=== PATIENT | female | born 1950 | race Caucasian/White ===

== ENCOUNTER → 2017-04-27 | Day surgery (SDC) | payer OTHER, MEDICARE ==
[2017-03-29 15:42] VITALS: Ht 162.6 cm; Wt 109.1 kg
[~2017-04-27] VITALS: Ht 162.6 cm; Wt 109.1 kg
[~2017-04-27] MED LIST: 500ML BSS 0.3ML EPI 1:1000PF IRRIG ONE; ACETAMINOPHEN 325 MG TAB PO PRN; AMIO0.1T PO; AMVISC PLUS 0.8ML SYRINGE INT OCU ONE; ASPCH81X PO; ATOR-24 PO; ATROPINE SULFATE 0.1 MG/ML 5ML SYR IV PRN; BETAXOLOL HCL 0.25% OP SUSP PER DROP CHARGE OPR SCH; BRIMONIDINE TART 0.2% OP SOLN PER DROP CHARGE ONE; BSS FLUSH ONE; CARI350T28 PO; DILT120C68 PO; ENDOCOAT 0.85ML SYRINGE INT OCU ONE; EpHEDrine SULFATE INJ 50 MG/ML AMP IV PRN; EpINEphrine INJ 1MG/ML AMP 1 MG/ML AMP ONE; FURO-85 PO; GABA1CAP5 PO; HYZ/10015 PO; LACTATED RINGER'S 1000ML 500 ML IV SCH; LEVO125T4 PO; LIDOCAINE 4% OP SOLN DROP CHARGE ONE; LIDOCAINE 4% OP SOLN DROP CHARGE OPR SCH; LIDOCAINE HCL 1% MPF 2 ML VIAL ONE; MIDAZOLAM HCL 1 MG/ML 2ML VIAL ONE; MIX: 4ML BSS 1ML EPI 1:1000 PF INSTIL ONE; MOXIFLOXACIN OPH SOLN PER DROP CHARGE ONE; MULT60CA PO; OCUCOAT 1 ML SOLN IO ONE; ONDANSETRON INJ 2 MG/ML 2 ML VIAL IV PRN; POVIDONE-IODINE OP SOLN 30 ML BTL ONE; PROPARACAINE 0.5% OP SOLN PER DROP CHARGE OPR SCH; RIVA1TAB4 PO; SERT-234 PO; TOBRAMYCIN/DEXAMETHASONE OPH OINT PER APPLN CHARGE ONE; VNTHFA/IN INH; ZNTT/150 PO; ZOLP10TA PO
--- NOTE | 2017-04-27 06:35 | History & Physical Bridge - [place] ---
H&P Re-Evaluation Bridge Note: I have examined the patient, reviewed the History & Physical and in the interval since the performance of the History & Physical I have noted the following changes of clinical significance: No changes noted
[2017-04-27] MEDS: PHENYLEPHRINE HCL 2.5% OP SOLN PER DROP CHARGE OPR SCH ×2 (06:45→06:50)
[2017-04-27] MEDS: TROPICAMIDE 1% OP SOLN PER DROP CHARGE OPR SCH ×2 (06:46→06:51)
[2017-04-27] MEDS: CYCLOPENTOLATE HCL 1% OP SOLN PER DROP CHARGE OPR SCH ×2 (06:47→06:52)
[2017-04-27] MEDS: MOXIFLOXACIN OPH SOLN PER DROP CHARGE OPR SCH ×2 (06:48→06:58)
--- NOTE | 2017-04-27 07:39 | Discharge Instructions-SurgCtr ---
Discharge Instructions Date of Service Apr 27, 2017. Visit Reason for Visit: Right Cataract Discharge Discharge Diagnosis / Problem: lens implant right eye Discharge Goals Goal(s): Improve function Activity Recommendations Activity Limitations: resume your previous activity Lifting Limitations: no more than 10 pounds Exercise/Sports Limitations: gradually increase as tolerated May Resume Sexual Activity: when tolerated Shower/Bathe: tomorrow Driving or Machine Use: resume 1 day after discharge Anesthesia . Post Anesthesia Instructions: If you have had General Anesthesia or IV Sedation: * Do not drive today. * Resume driving when surgeon permits. * Do not make important decisions or sign legal documents today. * Call surgeon for: 1. Temperature elevations greater than 101 degrees F. 2. Uncontrollable pain. 3. Excessive bleeding. 4. Persistent nausea and vomiting. 5. Medication intolerance (nausea, vomiting or rash). * For nausea and vomiting use only clear liquids such as: tea, soda, bouillon until nausea subsides, then gradually increase diet as tolerated. * If you have any concerns or questions, call your surgeon's office. If physician is unavailable and it is an emergency, call 911 or go to the nearest emergency room. . Instructions / Follow-Up Instructions / Follow-Up ACTIVITY RECOMMENDATIONS: * Light activities. * Mild irritation and blurred vision are common for the first few days. * You may walk outside, read, watch television. * Redness around the white part of the eye is common. MEDICATIONS: Resume previous medications unless instructed otherwise by your surgeon. Start all eye drops at 1 pm today: * Eye drops (today and tomorrow): Prednisone - one drop in operative eye every 3 hours while awake Ofloxacin - one drop in operative eye every 3 hours while awake Ilevro - one drop in operative eye once daily SPECIAL CARE INSTRUCTIONS: * Tape plastic shield over eye to sleep at night. Call your doctor at with any concerns or problems. FOLLOW UP VISIT: Follow-up with Dr Agosto at [place] office as scheduled. Diet Recommendations Home Diet: no limitations Procedures Procedures Performed: cataract extraction with lens implant Pending Studies Studies pending at discharge: no Medical Emergencies . Who to Call and When: Medical Emergencies: If at any time you feel your situation is an emergency, please call 911 immediately. . Non-Emergent Contact Non-Emergency issues call your: Inhalation Therapy Teacher Call Non-Emergent contact if: your pain is not controlled [phone] . . "Provider Documentation" section prepared by Javier Agosto. .
--- NOTE | 2017-04-27 07:40 | [facility] Operative Report ---
Operative Report Date of Service Apr 27, 2017. Operative Report 1. PREOPERATIVE DIAGNOSIS: Senile nuclear cataract, right eye. 2. POSTOPERATIVE DIAGNOSIS: Senile nuclear cataract, right eye. 3. PROCEDURE: Phacoemulsification of right cataract with posterior chamber lens implant, type [employer], model MX60, power +22 diopters. ANESTHESIA: Local standby. SURGEON: Dr. Agosto. COMPLICATIONS: None. OPERATING TIME: 10 minutes. 4. OPERATION AND FINDINGS: DESCRIPTION OF PROCEDURE: The right pupil was dilated. The anesthetic was administered using a topical technique. The right eye was prepped and draped. A speculum was placed. A clear corneal incision was formed. The chamber was filled with Amvisc Plus and Endocoat. Epinephrine solution was used. A paracentesis was placed. A capsulorrhexis was performed. The nucleus was hydrodissected. The lens was removed with phacoemulsification. Time was 2.23 seconds. The aspiration unit was used to remove the cortex. The capsule was filled with Amvisc Plus. The lens implant was folded and placed into the capsule. The incision was hydrated. The Amvisc was aspirated. The wound was secure. The chamber was deep. The pupil was round. Brimonidine, TobraDex ointment and Vigamox solution were placed. The speculum was removed. The patient was returned to the Recovery Room in stable condition. I attest to the content of the Intraoperative Record and any orders documented therein. Any exceptions are noted below. The scribe's documentation has been prepared in my presence, under my direction and personally reviewed by me in its entirety. I confirm that the note above accurately reflects all work, treatment, procedures, and medical decision making performed by me. I personally scribed for Javier Agosto M.D. ([email or web address]) on 04/27/17 at 07:40. Electronically submitted by Precious Francisco ([email or web address]).
[2017-04-27 07:45] VITALS: TEMP 36.5
--- NOTE | 2017-04-27 08:04 | Anesthesiology Progress Note ---
Anesthesia Post Op Note Date & Time Apr 27, 2017 at 08:04 Vital Signs Pain Intensity: 0 Vital Signs Past 12 Hours Date Time Temp Pulse Resp B/P (MAP) Pulse Ox O2 Delivery O2 Flow Rate FiO2 04/27/17 07:45 36.5 56 12 139/80 (99) 97 Room Air 04/27/17 06:32 36.8 59 18 133/68 (89) 96 Room Air Notes Mental Status: alert / awake / arousable, participated in evaluation Nausea / Vomiting: adequately controlled Pain: adequately controlled Airway Patency, RR, SpO2: stable & adequate BP & HR: stable & adequate Hydration State: stable & adequate Anesthetic Complications: no major complications apparent
[2017-04-27 08:10] VITALS: BP 138/81; PULSE 56; O2SAT 94
== END | disposition home or self-care (01) ==
LOC: X.SURG 06:14
PROVIDERS: ATTEND Specialist
DX: H25.11 Age-related nuclear cataract, right eye (principal); I10 Essential (primary) hypertension; I48.91 Unspecified atrial fibrillation; J45.909 Unspecified asthma, uncomplicated; E66.9 Obesity, unspecified; Z79.01 Long term (current) use of anticoagulants; Z88.0 Allergy status to penicillin; Z88.2 Allergy status to sulfonamides; Z90.89 Acquired absence of other organs; Z98.890 Other specified postprocedural states; Z68.41 Body mass index [BMI] 40.0-44.9, adult

== ENCOUNTER 2022-04-28 10:01 | Inpatient (IN) ==
--- NOTE | 2022-04-01 15:32 | PAT Medication Instructions ---
Medication Instructions Date of Service April 01, 2022 Home Medications Medication Instructions Recorded acetaminophen 500 mg tablet 1,000 mg PO TID PRN Pain #90 tabs 01/19/19 rivaroxaban 20 mg tablet (Xarelto) 20 mg PO QPM #90 tabs 01/19/19 albuterol sulfate 90 mcg/actuation 2 puffs inhalation QID PRN 02/08/20 aerosol inhaler (ProAir HFA) shortness of breath or wheezing #8 grams furosemide 20 mg tablet 20 mg PO QAM PRN edema #90 tabs 10/28/20 hydrocortisone 2.5 % topical cream 1 applic topical TID PRN skin 02/23/21 irritation #20 grams atorvastatin 40 mg tablet (Lipitor) 40 mg PO QPM #90 tabs 08/28/21 nystatin 100,000 unit/gram topical 1 applic topical DAILY PRN rash 10/02/21 powder #60 grams sertraline 100 mg tablet 100 mg PO QAM #90 tabs 01/04/22 gabapentin 600 mg tablet 600 mg PO QID #120 tabs 03/02/22 temazepam 15 mg capsule (Restoril) 15 mg PO HS PRN sleep #30 caps 03/16/22 acetaminophen 500 mg tablet 1,000 mg PO TID PRN rivaroxaban 20 mg tablet (Xarelto) 20 mg PO QPM albuterol sulfate 90 mcg/actuation aerosol inhaler (ProAir HFA) 2 puffs inhalation QID PRN diclofenac 3 %-hyaluronate 2 %-niacinamide 4 % topical gel 1 ea topical DAILY furosemide 20 mg tablet 20 mg PO QAM PRN hydrocortisone 2.5 % topical cream 1 applic topical TID PRN atorvastatin 40 mg tablet (Lipitor) 40 mg PO QPM nystatin 100,000 unit/gram topical powder 1 applic topical DAILY PRN sertraline 100 mg tablet 100 mg PO QAM gabapentin 600 mg tablet 600 mg PO QID temazepam 15 mg capsule (Restoril) 15 mg PO HS PRN albuterol sulfate 2.5 mg/3 mL (0.083 %) solution for nebulization 2.5 mg inhalation Q6H PRN alprazolam 0.5 mg tablet (Xanax) 0.5 mg PO BID PRN amiodarone 100 mg tablet 100 mg PO QPM aspirin 81 mg tablet,delayed release 81 mg PO QPM diltiazem HCl 180 mg capsule,extended release 24 hr 180 mg PO QPM levothyroxine 88 mcg tablet 88 mcg PO QAM linaclotide 72 mcg capsule (Linzess) 72 mcg PO QAM olmesartan 40 mg tablet (Benicar) 40 mg PO QAM omeprazole 20 mg capsule,delayed release 20 mg PO QAM vit C 250 mg-vit E 90 mg-zinc 40 mg-copper 1 [id number] capsule (PreserVision AREDS-2) 1 tab PO BID Continue as directed gabapentin 600 mg tablet 600 mg PO QID ASK your prescriber and surgeon rivaroxaban 20 mg tablet (Xarelto) 20 mg PO QPM(in order for spinal or epidural anesthesia, Xarelto needs to be stopped 72 hours/3 days before surgery. Please check if okay with doctor that prescribes this to you) STOP taking 2 weeks before surgery vit C 250 mg-vit E 90 mg-zinc 40 mg-copper 1 [id number] capsule (PreserVision AREDS-2) 1 tab PO BID STOP taking 24 hours before surgery diclofenac 3 %-hyaluronate 2 %-niacinamide 4 % topical gel 1 ea topical DAILY hydrocortisone 2.5 % topical cream 1 applic topical TID PRN nystatin 100,000 unit/gram topical powder 1 applic topical DAILY PRN DO NOT take the morning of surgery furosemide 20 mg tablet 20 mg PO QAM PRN linaclotide 72 mcg capsule (Linzess) 72 mcg PO QAM olmesartan 40 mg tablet (Benicar) 40 mg PO QAM Take morning of surgery With a small sip of water, OTHERWISE NOTHING TO EAT OR DRINK AFTER MIDNIGHT: acetaminophen 500 mg tablet 1,000 mg PO TID PRN(if needed) albuterol sulfate 90 mcg/actuation aerosol inhaler (ProAir HFA) 2 puffs inhalation QID PRN(use if needed; please bring with you to hospital day of surgery if possible) sertraline 100 mg tablet 100 mg PO QAM albuterol sulfate 2.5 mg/3 mL (0.083 %) solution for nebulization 2.5 mg inhalation Q6H PRN(if needed) alprazolam 0.5 mg tablet (Xanax) 0.5 mg PO BID PRN(if needed) levothyroxine 88 mcg tablet 88 mcg PO QAM omeprazole 20 mg capsule,delayed release 20 mg PO QAM Take evening before surgery acetaminophen 500 mg tablet 1,000 mg PO TID PRN(if needed) albuterol sulfate 90 mcg/actuation aerosol inhaler (ProAir HFA) 2 puffs inhalation QID PRN(if needed) atorvastatin 40 mg tablet (Lipitor) 40 mg PO QPM temazepam 15 mg capsule (Restoril) 15 mg PO HS PRN(if needed) albuterol sulfate 2.5 mg/3 mL (0.083 %) solution for nebulization 2.5 mg inhalation Q6H PRN(if needed) alprazolam 0.5 mg tablet (Xanax) 0.5 mg PO BID PRN(if needed) amiodarone 100 mg tablet 100 mg PO QPM aspirin 81 mg tablet,delayed release 81 mg PO QPM (unless directed otherwise by surgeon) diltiazem HCl 180 mg capsule,extended release 24 hr 180 mg PO QPM Other Notes If you have any questions please call us at [phone] or [phone] or [phone] or [phone]
--- NOTE | 2022-04-09 14:10 | Anesthesiology Consultation ---
Date of Service April 09, 2022 Assessment & Plan (1) Encounter for pre-operative examination: - Awaiting surgeon-ordered PCP preop evaluation ([facility]; 04/13). - Routine f/u with cardio scheduled prior to surgery. Awaiting cardiology office visit note (Dr. De La Vega, scheduled 04/19). - COVID screening: Per assessment on 04/09: No known COVID-19 positive contacts or current COVID-19 related symptoms. Travel screen negative. Patient vaccinated. At surgeon discretion if preop Covid testing being done. - Outpatient joint assessment: Pt currently scheduled for inpatient pathway. If surgeon requests review for outpatient joint pathway, patient is not recommended candidate for outpatient joint program from anesthesia standpoint. - Patient request: Hx of left sided fall several years ago resulting in "lumps"/abnormalities to left side. Per pt, not told restriction but patient request RUE use when possible* - Xarelto instructions: patient made aware that in order for spinal anesthesia, Xarelto needs to be held 72 hours prior to surgery. Patient voiced understanding/will check if okay with prescriber. - Unsuccessful SAB: Left BISI (01/25/18)- Unable to perform SAB 2/2 severe scoliosis, hit bone. Will proceed with general- Grade view 4, MAC 3 > Glidescope #3, ETT 7.0. Discussed SAB vs. GA with patient. Advised that ultimate anesthesia type to be determined AM DOS. Chart Review Chart Review: Patient seen in Pre Admission Testing Teaching & Discussion Pre-Anesthesia Teaching/Discussion Notes: Instructed NPO after midnight before surgery,except medications with 15 cc of water. Medication instructions provided according to the PAT guidelines. History Surgery Operation Date: 04/28/22 11:45 Proposed Procedures p Right Total Knee Arthroplasty - Bandar Decker MD Height/Weight Height: 5 ft 2 in Weight: 79.4 kg Allergies Allergy/AdvReac Type Severity Reaction Status Date / Time morphine Allergy Unknown NAUSEA Verified 03/30/22 12:24 VOMITING Penicillins Allergy Unknown HIVES Verified 03/30/22 12:24 Sulfa (Sulfonamide Allergy Unknown TURN RED Verified 03/30/22 12:24 Antibiotics) perfume AdvReac Unknown Cough Verified 03/30/22 12:24 Medications Home Medications Medication Instructions Recorded Confirmed Last Taken acetaminophen 500 mg tablet 1,000 mg PO TID PRN Pain #90 tabs 01/19/19 03/30/22 Unknown rivaroxaban 20 mg tablet (Xarelto) 20 mg PO QPM #90 tabs 01/19/19 03/30/22 Unknown albuterol sulfate 90 mcg/actuation 2 puffs inhalation QID PRN 02/08/20 03/30/22 Unknown aerosol inhaler (ProAir HFA) shortness of breath or wheezing #8 grams diclofenac 3 %-hyaluronate 2 1 ea topical DAILY 06/27/20 03/30/22 Unknown %-niacinamide 4 % topical gel furosemide 20 mg tablet 20 mg PO QAM PRN edema #90 tabs 10/28/20 03/30/22 Unknown hydrocortisone 2.5 % topical cream 1 applic topical TID PRN skin 02/23/21 03/30/22 Unknown irritation #20 grams atorvastatin 40 mg tablet (Lipitor) 40 mg PO QPM #90 tabs 08/28/21 03/30/22 Unknown nystatin 100,000 unit/gram topical 1 applic topical DAILY PRN rash 10/02/21 03/30/22 Unknown powder #60 grams gabapentin 600 mg tablet 600 mg PO QID #120 tabs 03/02/22 03/30/22 Unknown temazepam 15 mg capsule (Restoril) 15 mg PO HS PRN sleep #30 caps 03/16/22 03/30/22 Unknown albuterol sulfate 2.5 mg/3 mL 2.5 mg inhalation Q6H PRN Wheezing 03/30/22 03/30/22 Unknown (0.083 %) solution for nebulization alprazolam 0.5 mg tablet (Xanax) 0.5 mg PO BID PRN Anxiety 03/30/22 03/30/22 Unknown amiodarone 100 mg tablet 100 mg PO QPM 03/30/22 03/30/22 Unknown aspirin 81 mg tablet,delayed 81 mg PO QPM 03/30/22 03/30/22 Unknown release diltiazem HCl 180 mg 180 mg PO QPM 03/30/22 03/30/22 Unknown capsule,extended release 24 hr levothyroxine 88 mcg tablet 88 mcg PO QAM 03/30/22 03/30/22 Unknown linaclotide 72 mcg capsule 72 mcg PO QAM 03/30/22 03/30/22 Unknown (Linzess) olmesartan 40 mg tablet (Benicar) 40 mg PO QAM 03/30/22 03/30/22 Unknown omeprazole 20 mg capsule,delayed 20 mg PO QAM 03/30/22 03/30/22 Unknown release vit C 250 mg-vit E 90 mg-zinc 40 1 tab PO BID 03/30/22 03/30/22 Unknown mg-copper 1 [id number] capsule (PreserVision AREDS-2) sertraline 100 mg tablet 100 mg PO QAM #90 tabs 04/01/22 Unknown Past Medical History Medical History Anemia Anxiety and depression Asthmatic bronchitis CAD (coronary artery disease) Follows with Dr. De La Vega Chronic lower back pain Constipation Degenerative joint disease of left hip Gastritis CHRONIC GERD (gastroesophageal reflux disease) Hearing loss History of atrial fibrillation Paroxysmal History of trigger finger R THUMB HTN (hypertension) Hyperlipidemia Hypertension Hypothyroidism Kidney stones Left bundle branch block (LBBB) Lumbar disc disease Macular degeneration Morbid obesity Neurogenic claudication due to lumbar spinal stenosis Nonerosive gastroesophageal reflux disease Pulmonary nodule Scoliosis NECK (LIMITED ROM) & BACK Sleep apnea No device Exercise / Class Metabolic Activity III < 4 Walking/Shop/Light housework Past Family History Family History Father Myocardial infarction CHF (congestive heart failure) Brother Coronary heart disease Hyperlipidemia Mother CHF (congestive heart failure) Other Afib Denies family history of Ovarian cancer Prostate cancer Breast cancer Lung cancer Colorectal cancer Past Surgical History Surgical History Difficult intubation Left BISI (01/25/18): Unable to perform SAB 2/2 severe scoliosis, hit bone. Will proceed with general > Grade view 4 failed, MAC 3 > Glidescope #3, ETT 7.0. History of cardiac radiofrequency ablation X2 History of cardioversion X4 for a fib History of esophagogastroduodenoscopy (EGD) History of open reduction and internal fixation (ORIF) procedure L ANKLE History of tonsillectomy History of total left hip arthroplasty Hx of arthroscopy of right knee Hx of bilateral cataract extraction Hx of cardiac catheterization 2013 Hx of colonoscopy Hx of removal of ovary LEFT Status post lumbar surgery Past Anesthesia History No Family Hx of Anesthesia Complications and Other ("slow to wake") History of PONV No Hx of PONV and Hx of Motion Sickness (Rare ) Social History Smoking Status: Never smoker Do You Dip or Chew Tobacco: No Hx Alcohol Use: No Hx Substance Use: No substance use type: does not use Review of Systems Patient denies chest pain, shortness of breath, fever, chills, cough, wheezing, palpitations. Physical Exam Vital Signs VITALS BP 171/79 > 177/78 P 61 > Per pt, chronic bradycardia with baseline HR 50-60s TEMP 98.0 SP02 96%RA RESP 16 PHYSICAL Full cervical extension range of motion. Full TMJ range of motion. TMD 2.5 finger breaths Mallampati Score 2 (small oral opening) Dentition: missing molars, lower partial, + caps/crowns Lungs: clear throughout to auscultation Cardiac: regular rate and rhythm, no murmurs noted Spine: normal Carotid arteries: negative bruit Extremities: no edema Lab Results Anesthesia Preop Results Results Anesthesia Widget: WBC 5.88 K/ul (4.8-10.8) 04/09/22 Hgb 13.9 g/dl (12.0-16.0) 04/09/22 Hct 41.8 % (34.1-44.9) 04/09/22 Plt 178 K/uL (130-400) 04/09/22 Na 139 mmol/L (136-145) 04/09/22 K 4.0 mmol/L (3.5-5.1) 04/09/22 Cl 105 mmol/L (98-107) 04/09/22 CO2 23 mmol/L (21-32) 04/09/22 BUN 19 mg/dl (6-23) 04/09/22 Creat 0.70 mg/dl (0.6-1.2) 04/09/22 Glucose Level 127 mg/dl (70-99(Fasting)) H 04/09/22 PT 11.7 Seconds (9.0-12.0) 04/09/22 PTT 28.5 Seconds (21.0-31.0) 04/09/22 INR 1.1 (0.9-1.1) 04/09/22 TSH 0.62 uIU/mL (0.30-4.50) 02/18/22 HA1c 5.6 % (4.5-5.6) 04/09/22 Urine Color Yellow 04/09/22 Urine Appearance Clear (Clear) 04/09/22 Urine pH 6.0 (4.5-7.5) 04/09/22 Urine Specific [place] 1.022 (1.000-1.030) 04/09/22 Urine Protein Negative (Negative) 04/09/22 Urine Glucose (UA) Negative (Negative) 04/09/22 Urine Ketones Negative (Negative) 04/09/22 Urine Blood Negative (Negative) 04/09/22 Urine Nitrite Negative (Negative) 04/09/22 Urine Bilirubin Negative (Negative) 04/09/22 Urine Urobilinogen Negative (Negative) 04/09/22 Urine Leukocyte Esterase 2+ (Negative) H 04/09/22 Urine WBC (Auto) 10-30 /hpf (0-5) H 04/09/22 Urine RBC (Auto) 0-4 /hpf (0-4) 04/09/22 Urine Hyaline Casts (Auto) 1-5 /lpf (0-5) 04/09/22 Urine Epithelial Cells (Auto) >30 /lpf (0-5) H 04/09/22 Urine Bacteria (Auto) Negative (Negative) 04/09/22 Blood Type A Positive 04/09/22 Antibody Screen NEGATIVE 04/09/22 Testing Electrocardiogram Date: 04/09/22 SB with first degree AVB at 59bpm. LBBB [known/chronic hx]. Chest X-Ray Date: 04/09/22 FINDINGS: Cardiomediastinal and hilar silhouettes are within normal limits. Atherosclerosis of the aorta. No pneumothorax, pleural effusion, airspace consolidation or overt pulmonary edema. Mild linear right basilar and lateral left midlung atelectasis versus scarring. Degenerative changes of the shoulders and spine. Partially imaged lumbar spinal fusion hardware. Severe L2-L3 intervertebral disc space narrowing. Chronic L2 compression fracture. IMPRESSION: No acute process of the chest. Echocardiogram Date: 04/22/21 LVEF 60%. Grade 2 diastolic dysfunction. Severe LAE. Mild mitral annular calcification. Mild MR. Borderline increased concentric LV wall thickness. Cardiac Catheterization Date: 05/06/14 LAD has 40% proximal lesion, otherwise luminal irregularities. COVID-19 Risk Screen Screening Information COVID-19 Screen Date: 04/09/22 Exposure 21 Days Family/Household +COVID Last 21 Days: No Exposure 10 Days Any COVID Exposure Last 10 Days: No Symptoms Last 10 Days Experienced COVID Sx Last 10 Days: No + COVID 0-90 Days COVID + in Last 0-90 Days: No
--- NOTE | 2022-04-27 12:07 | History & Physical Report ---
Date of Service April 27, 2022 Assessment & Plan (1) Primary osteoarthritis of right knee: Plan: Treatment options discussed with the patient. She has failed conservative measures. She would like to proceed with surgical intervention. Risks, benefits and alternatives to surgery including but not limited to infection, DVT, pain, stiffness, need for revision surgery, damage to blood vessels, damage to nerves, PE, , were discussed with the patient and they wish to proceed. Plan on right total knee arthroplasty scheduled for [facility] on 04/28/[address] Decker. Will plan on HHPT post op. Plan on Xarelto 10mg daily for 1 mo post op for DVT prophylaxis. Plan on Pawling post op for pain control. All questions answered. F/u post op. History of Present Illness Chief Complaint: Right knee pain Primary Care Provider: Jericho Sierra DO 72yo female with PMHx significant for Afib, HTN, DARNELL, GERD, CAD, LBBB, hypothyro idism who presents with ongoing right knee pain. Patient has failed conservative measures. She has pain interfering with daily activities. She would like to proceed with surgical intervention. Patient denies headaches, sweats, fevers, chills, double vision, blurred vision, cough, sore throat, dysphagia, chest pain, sob, wheezing, n/v/d/c, numbness, tingling, fatigue, urinary symptoms, mood disorders. ROS positive for right knee pain and stiffness. Allergies Allergy/AdvReac Type Severity Reaction Status Date / Time morphine Allergy Unknown NAUSEA Verified 04/13/22 13:10 VOMITING Penicillins Allergy Unknown HIVES Verified 04/13/22 13:10 Sulfa (Sulfonamide Allergy Unknown TURN RED Verified 04/13/22 13:10 Antibiotics) perfume AdvReac Unknown Cough Verified 04/13/22 13:10 Home Medications Medication Instructions Recorded Confirmed Type acetaminophen 500 mg tablet 1,000 mg PO TID PRN Pain #90 tabs 01/19/19 04/13/22 Rx rivaroxaban 20 mg tablet (Xarelto) 20 mg PO QPM #90 tabs 01/19/19 04/13/22 Rx diclofenac 3 %-hyaluronate 2 1 ea topical DAILY 06/27/20 04/13/22 History %-niacinamide 4 % topical gel furosemide 20 mg tablet 20 mg PO QAM PRN edema #90 tabs 10/28/20 04/13/22 Rx hydrocortisone 2.5 % topical cream 1 applic topical TID PRN skin 02/23/21 04/13/22 Rx irritation #20 grams atorvastatin 40 mg tablet (Lipitor) 40 mg PO QPM #90 tabs 08/28/21 04/13/22 Rx nystatin 100,000 unit/gram topical 1 applic topical DAILY PRN rash 10/02/21 04/13/22 Rx powder #60 grams gabapentin 600 mg tablet 600 mg PO QID #120 tabs 03/02/22 04/13/22 Rx albuterol sulfate 2.5 mg/3 mL 2.5 mg inhalation Q6H PRN Wheezing 03/30/22 04/13/22 History (0.083 %) solution for nebulization alprazolam 0.5 mg tablet (Xanax) 0.5 mg PO BID PRN Anxiety 03/30/22 04/13/22 History amiodarone 100 mg tablet 100 mg PO QPM 03/30/22 04/13/22 History aspirin 81 mg tablet,delayed 81 mg PO QPM 03/30/22 04/13/22 History release diltiazem HCl 180 mg 180 mg PO QPM 03/30/22 04/13/22 History capsule,extended release 24 hr levothyroxine 88 mcg tablet 88 mcg PO QAM 03/30/22 04/13/22 History linaclotide 72 mcg capsule 72 mcg PO QAM 03/30/22 04/13/22 History (Linzess) olmesartan 40 mg tablet (Benicar) 40 mg PO QAM 03/30/22 04/13/22 History omeprazole 20 mg capsule,delayed 20 mg PO QAM 03/30/22 04/13/22 History release vit C 250 mg-vit E 90 mg-zinc 40 1 tab PO BID 03/30/22 04/13/22 History mg-copper 1 [id number] capsule (PreserVision AREDS-2) sertraline 100 mg tablet 100 mg PO QAM #90 tabs 04/01/22 04/13/22 Rx albuterol sulfate 90 mcg/actuation 2 puff inhalation QID PRN 04/13/22 04/13/22 Rx aerosol inhaler (ProAir HFA) shortness of breath or wheezing #8 grams temazepam 15 mg capsule (Restoril) 15 mg PO HS PRN sleep #30 caps 04/13/22 Rx Past Med/Surg History Medical History Anemia Anxiety and depression Asthmatic bronchitis CAD (coronary artery disease) Follows with Dr. De La Vega Chronic lower back pain Constipation Degenerative joint disease of left hip Gastritis CHRONIC GERD (gastroesophageal reflux disease) Hearing loss History of atrial fibrillation Paroxysmal History of trigger finger R THUMB HTN (hypertension) Hyperlipidemia Hypertension Hypothyroidism Kidney stones Left bundle branch block (LBBB) Lumbar disc disease Macular degeneration Morbid obesity Neurogenic claudication due to lumbar spinal stenosis Nonerosive gastroesophageal reflux disease Pulmonary nodule Scoliosis NECK (LIMITED ROM) & BACK Sleep apnea No device Surgical History Difficult intubation Left BISI (01/25/18): Unable to perform SAB 2/2 severe scoliosis, hit bone. Will proceed with general > Grade view 4 failed, MAC 3 > Glidescope #3, ETT 7.0. History of cardiac radiofrequency ablation X2 History of cardioversion X4 for a fib History of esophagogastroduodenoscopy (EGD) History of open reduction and internal fixation (ORIF) procedure L ANKLE History of tonsillectomy History of total left hip arthroplasty Hx of arthroscopy of right knee Hx of bilateral cataract extraction Hx of cardiac catheterization 2013 Hx of colonoscopy Hx of removal of ovary LEFT Status post lumbar surgery Family History Father Myocardial infarction CHF (congestive heart failure) Brother Coronary heart disease Hyperlipidemia Mother CHF (congestive heart failure) Other Afib Denies family history of Ovarian cancer Prostate cancer Breast cancer Lung cancer Colorectal cancer Social History Smoking Status: Never smoker Second Hand Exposure: Yes (PARENTS SMOKED); Hx Alcohol Use: No Hx Substance Use: No Preferred Language: Yi Communication Ability: Effective Visual Impairment: Limited Hearing Ability: Hard of Hearing 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 Beliefs That Will Affect Care: None marital status: Current Living Situation: Alone current occupational status: retired How many Children do You have: 1 Feels Safe at Home: Yes Childhood Exposure to Second-Hand Smoke: Yes Diet Comment: regular diet caffeine: Yes (1 cup of flora) during the past year weight has: remained stable Dental Care, Regularly: Yes Physical Activity Frequency: Does not Exercise Seatbelt Use: always Sunscreen Use: No (Not out much) Assistive Devices: Cane, Denture - Lower, Glasses and Walker Review of Systems All systems reviewed & are unremarkable except as noted in HPI & below Physical Exam Constitutional: well developed and well nourished; no acute distress Eyes: PERRL, conjunctivae normal, anicteric sclerae ENMT: external ear and nose normal, oropharynx normal Neck: trachea midline, no thyromegaly Respiratory: normal respiratory effort, lungs clear to auscultation Cardiovascular: RRR, no murmur, no edema Musculoskeletal: Right knee: Valgus alignment. Tenderness lateral joint line. Stable to valgus and varus stress. ROM 0-125 degrees. Crepitation with ROM. Skin: no rashes, warm and dry Neurologic: patellar DTR's 2+ bilat, sensation intact Psychiatric: A+Ox3, euthymic affect Results & Data ([facility]) Diagnostic Findings Radiographs: Four-view x-rays bilateral knees with weightbearing films demonstrate the right knee on flexion standing films demonstrate she is bone on bone in the lateral compartment. No major changes from x-rays a year ago. Left knee has moderate medial compartment osteoarthritis on flexion views. On extension views, maintained joint spaces on the left knee. There is some chondrocalcinosis noted, which could be a sign of calcium pyrophosphate disease. The right knee also has moderately severe patellofemoral osteoarthritis with superior and inferior patellofemoral osteophytes. There are also some areas of chondrocalcinosis noted on the right knee, which could be a sign of calcium pyrophosphate disease. There is also osteopenia of the bone where the patient could have osteopenia or osteoporosis.
[~2022-04-28 10:01] MED LIST changes: -500ML BSS 0.3ML EPI 1:1000PF IRRIG ONE; -ACETAMINOPHEN 325 MG TAB PO PRN; +ACETAMINOPHEN 500 MG TAB PO SCH; -AMIO0.1T PO; -AMVISC PLUS 0.8ML SYRINGE INT OCU ONE; -ASPCH81X PO; -ATOR-24 PO; -ATROPINE SULFATE 0.1 MG/ML 5ML SYR IV PRN; -BETAXOLOL HCL 0.25% OP SUSP PER DROP CHARGE OPR SCH; -BRIMONIDINE TART 0.2% OP SOLN PER DROP CHARGE ONE; -BSS FLUSH ONE; +BUPIVACAINE 0.5 % 5 MG/1 ML MPF 30ML VIAL ONE; -CARI350T28 PO; -DILT120C68 PO; -ENDOCOAT 0.85ML SYRINGE INT OCU ONE; +EPINEPHrine INJ 1 MG/ML AMP ONE; -EpHEDrine SULFATE INJ 50 MG/ML AMP IV PRN; -EpINEphrine INJ 1MG/ML AMP 1 MG/ML AMP ONE; +FAMOTIDINE 20 MG TAB PO SCH; -FURO-85 PO; -GABA1CAP5 PO; +GABAPENTIN 300 MG CAP PO SCH; -HYZ/10015 PO; -LACTATED RINGER'S 1000ML 500 ML IV SCH; -LEVO125T4 PO; -LIDOCAINE 4% OP SOLN DROP CHARGE ONE; -LIDOCAINE 4% OP SOLN DROP CHARGE OPR SCH; -LIDOCAINE HCL 1% MPF 2 ML VIAL ONE; +LR 15ML/HR IV SCH; +METOCLOPRAMIDE HCL 10 MG TABLET PO SCH; -MIDAZOLAM HCL 1 MG/ML 2ML VIAL ONE; -MIX: 4ML BSS 1ML EPI 1:1000 PF INSTIL ONE; -MOXIFLOXACIN OPH SOLN PER DROP CHARGE ONE; -MULT60CA PO; -OCUCOAT 1 ML SOLN IO ONE; -ONDANSETRON INJ 2 MG/ML 2 ML VIAL IV PRN; -POVIDONE-IODINE OP SOLN 30 ML BTL ONE; -PROPARACAINE 0.5% OP SOLN PER DROP CHARGE OPR SCH; -RIVA1TAB4 PO; +ROPIVACAINE 0.5% 5 MG/ML 30 ML VIAL ONE; +ROPIVACAINE 0.5% HCL/PF 150 MG, BUPIVACAINE 0.75% MPF 20 ML, EPINEPHrine 30MG/30ML (OR ... INSTIL SCH; -SERT-234 PO; -TOBRAMYCIN/DEXAMETHASONE OPH OINT PER APPLN CHARGE ONE; +TRANEXAMIC ACID 1,000 MG **IV Intra-op IV SCH; +TRANEXAMIC ACID 1,000 MG **IV Pre-op IV SCH; +VANCOMYCIN HCL 1,250 MG in SODIUM CHLORIDE 0.9% 250 ML IV SCH; -VNTHFA/IN INH; -ZNTT/150 PO; -ZOLP10TA PO; +dexAMETHasone 4 MG TAB PO SCH
[2022-04-28] MEDS ORDERED: PROPOFOL IV EMULSION 10 MG/ML 20 ML VIAL IV ONE ×3 (11:55→11:56)
[2022-04-28] MEDS ORDERED: fentaNYL citrate 100 MCG/2 ML VIAL ONE ×2 (11:55→14:06)
[2022-04-28] MEDS ORDERED: MIDAZOLAM HCL 1 MG/ML 2ML VIAL ONE (11:55)
[2022-04-28] MEDS ORDERED: LIDOCAINE 2% 2 ML VIAL/AMP(20MG/ML) INFIL ONE (11:57)
--- NOTE | 2022-04-28 12:51 | History & Physical Bridge Note ---
Date of Service April 28, 2022 History & Physical Bridge Note I have examined the patient, reviewed the History & Physical and in the interval since the performance of the History & Physical I have noted the following changes of clinical significance: no changes noted
[2022-04-28] MEDS ORDERED: ORTHO JOINT ANESTHETIC ONE (13:03)
[2022-04-28] MEDS ORDERED: ONDANSETRON INJ 2 MG/ML 2 ML VIAL ONE (14:23)
[2022-04-28] MEDS ORDERED: DEXAMETHASONE SOD INJ 4 MG/ML VIAL ONE ×2 (14:23→14:30)
[2022-04-28] MEDS ORDERED: KETAMINE 50 MG/5 ML SYRINGE ONE (14:27)
--- NOTE | 2022-04-28 15:52 | Post Operative Brief Note ---
Immediate Post Op Note v1 Date of Surgery April 28, 2022 Pre & Post Diagnosis Operation Date: 04/28/22 12:00 Pre-Op Diagnosis: Osteoarthritis, Right Knee Post-Op Diagnosis: Osteoarthritis, Right Knee I identified the patient and participated in the time-out.: Yes Procedure Operation Date: 04/28/22 12:00 Actual Procedures p Right Total Knee Arthroplasty(Right) - Bandar Decker MD Surgeon Bandar Decker MD Cost Coordinator Chaim ALVAREZ Estimated Blood Loss 5 Findings Consistent with Post-Op Diagnosis Specimens Bone cuts Drains Hemovac Drain Anesthesia Type General Regional Complications none Disposition Disposition: Recovery Room Overlapping Procedure I was immediately available: during the entire case.
--- NOTE | 2022-04-28 16:01 | Operative Report ---
Post Operative Report Pre & Post Diagnosis Operation Date: 04/28/22 12:00 Pre-Op Diagnosis: Osteoarthritis, Right Knee Post-Op Diagnosis: Osteoarthritis, Right Knee I identified the patient and participated in the time-out.: Yes Procedure Operation Date: 04/28/22 12:00 Actual Procedures p Right Total Knee Arthroplasty(Right), lateral release, application superficial wound VAC jenn and Acticoat- Bandar Decker MD Surgeon Bandar Decker MD Cyber Analyst Chaim ALVAREZ Estimated Blood Loss 5 Findings Consistent with Post-Op Diagnosis Specimens Bone cuts Drains 2 Hemovac Anesthesia Type General Regional Complications none Disposition Accompanied Patient To Recovery: No Disposition: Recovery Room Indications 72-year female with chronic progressive osteoarthritis in her right knee failed conservative management. Radiographs demonstrates she has been [id number] for several years in the lateral compartment of right knee. She had extensive conservative management. Description of Procedure Patient was taken to the operating room placed supine on the operating table and anesthetized under general regional block anesthesia. Exam under anesthesia demonstrated an obese upper thigh and relatively thin skin and 0 through 115 degrees range of motion with no instability and marked lateral compartment crepitation with a valgus knee. A pneumatic tourniquet was placed about the obese upper thigh of the right lower extremity. The right lower extremity was prepped and draped in usual sterile fashion. The leg was elevated exsanguinated with an Esmarch bandage and the pneumatic tourniquet was raised to 325 mm mercury. An anterior incision was made across the right knee. The skin was incised longitudinally subcutaneous flaps were elevated and an incision was made through the medial retinaculum extending up into the mid third of the quadriceps tendon and extended down to the medial tibial tubercle. Intra-articular findings demonstrated tricompartmental osteoarthritis with eburnated bone [id number] lateral compartment with some hypoplasia of the lateral femoral condyle. Patient had either steroid deposition deposits with white discoloration of the synovium and articular surfaces or possibly chondrocalcinosis. There is a chronic lateral meniscus tear. There was eburnated bone in the lateral compartment.. The knee was exposed by excising the infrapatellar fat pad, excising the meniscal remnants and anterior cruciate ligament. Any inflamed synovial tissue was resected. The fat pad over the anterior femur was resected for placement of the component in that area. The lateral synovial bands were release. The femur was exposed. The custom femoral cutting block was pinned in position. The distal femoral cutting block was applied. The distal femoral cut was made with the oscillating saw. The size 8, 4-in-1 cutting block was placed. The anterior and posterior chamfer cuts were made. The knee was extended and a subperiosteal peel lateral release was performed around the patella. The patella width was measured and width was reproduced using freehand cut technique. The 32 millimeter symmetrical patella was used. 3 drill holes are made for the pegs. The tibia was exposed. A custom tibial cutting block was positioned and drill holes were made for the cutting guide. Cutting guide was placed and the proximal cut was made with the oscillating saw. All osteophytes were resected. It was noted that patient had significant osteopenia probable osteoporosis. Bone quality was soft. The lamina stock house worker was used to assess ligamentous balance and the ligaments were balanced in extension and flexion. This required releasing the IT band off the lateral tibia lateral capsular release off the tibia and popliteus tendon was maintained intact. This balanced flexion extension gaps. The tibia was reexposed and measured for a size D tibial component. This was externally rotated in line with the tibial tubercle and the fixation pins were drilled. The proximal tibia was fashioned with the drill and punch. The size 8 CR femoral trial was inserted. The trial MC inserts were used. The 11 mm insert gave balanced ligaments through full range of motion. The patella tracked centrally but at maximum flexion there was some slight lateral translation and patellar tilt so I did a limited lateral release leaving the synovium intact enough to create completely centrally tracking patella through full range of motion including deep flexion.. the trials were removed. The orthomix anesthetic cocktail was injected per protocol. The knee was then copiously irrigated with pulsatile lavage saline solution. The final components were cemented with Refobacin bone cement. The final components were [employer] persona 8 narrow CR right femoral component, right D tibial component, 11 MC tibial polyethylene and a 32 symmetrical patella. After the cement cured with the knee in full extension the Betadine soak was used per protocol. The knee joint was copiously irrigated with pulsatile lavage saline solution . 2 drains were brought out laterally and connected to a Hemovac. The quadriceps tendon and medial retinaculum were closed with interrupted [id number] #1 Vicryl sutures. The knee was taken through a full range of motion and repair was secure. The subcutaneous tissues were closed with 2-0 Vicryl sutures and skin was closed with yamil. Jenn and Acticoat superficial wound VAC was applied and the patient tolerated the procedure well. Chaim ALVAREZ my physician construction management assistant, assisted in soft tissue retraction, instrument management ,leg positioning, the closure, application superficial wound VAC and will participate in the postoperative care of the patient. I attest to the content of the Intraoperative Record and any orders documented therein. Any exceptions are noted below.
[2022-04-28] MEDS ORDERED: hydrALAZINE HCL 20 MG/ML VIAL ONE (16:24)
[2022-04-28] MEDS ORDERED: ePHEDrine sulfate 50 MG/ML AMP IV PRN (16:25)
[2022-04-28] MEDS ORDERED: hydrALAZINE HCL 20 MG/ML VIAL IV STA (16:25)
[2022-04-28] MEDS ORDERED: fentaNYL citrate 100 MCG/2 ML VIAL IV PRN (16:25)
[2022-04-28] MEDS ORDERED: NALOXONE HCL 0.4 MG/1 ML VIAL/CARP IV PRN ×2 (16:25→17:52)
[2022-04-28] MEDS ORDERED: ATROPINE SULFATE 0.1 MG/ML 10ML SYR IV PRN (16:25)
[2022-04-28] MEDS ORDERED: ONDANSETRON INJ 2 MG/ML 2 ML VIAL IV PRN ×2 (16:25→17:52)
[2022-04-28] MEDS ORDERED: LABETALOL HCL IV 5 MG/ML 20ML IV PRN (16:25)
[2022-04-28] MEDS ORDERED: PROMETHAZINE HCL 12.5 MG in SODIUM CHLORIDE 0.9% 50 ML IV PRN (16:25)
[2022-04-28] MEDS ORDERED: FLUMAZENIL 0.1 MG/1 ML 10 ML VIAL IV PRN (16:25)
--- NOTE | 2022-04-28 16:42 | XRay Report ---
XR knee RT 1 or 2V routine CLINICAL HISTORY: Surgical Post Op TECHNIQUE: 2 views of the right knee were obtained. Comparison: None available at the time of this dictation. FINDINGS: Patient is status post total knee arthroplasty with expected postsurgical changes including soft tiss ue swelling and subcutaneous emphysema. No periarticular lucency or hardware fracture is seen. IMPRESSION: Expected postoperative appearance status post placement of total knee arthroplasty. ACT 112: Negative or not required by law. Electronically signed by: Artem Reyes M.D. 04/28/2022 4:41 PM
--- NOTE | 2022-04-28 16:48 | Anesthesiology Progress Note ---
Date of Service April 28, 2022 Anesthesia Post Procedure Vital Signs Vital Signs: Temp Pulse Pulse Resp BP BP Pulse Ox 04/28/22 16:35 37.0 C 69 15 145/66 H 98 04/28/22 16:25 67 12 159/66 H 99 04/28/22 16:05 69 20 165/53 H 91 04/28/22 16:15 68 14 167/60 H 93 04/28/22 15:55 70 13 183/56 H 95 04/28/22 15:45 36.7 C 70 13 159/56 H 93 04/28/22 11:11 36.7 C 62 18 182/59 H 99 O2 Del Method O2 Flow Rate 04/28/22 16:35 Nasal Cannula 2 04/28/22 16:25 Nasal Cannula 2 04/28/22 16:05 Room Air 04/28/22 16:15 Room Air 04/28/22 15:55 Oxymask 6 04/28/22 15:45 Oxymask 6 04/28/22 11:11 Room Air Transfer of Care Handoff Completed per policy Notes Mental Status: alert / awake / arousable Patient Amnestic to Procedure: Yes Nausea / Vomiting: adequately controlled Pain: adequately controlled Airway Patency, RR, SpO2: stable & adequate BP & HR: stable & adequate Hydration State: stable & adequate Anesthetic Complications: no major complications apparent
[2022-04-28] MEDS ORDERED: ALBUTEROL 0.083% NEBU SOLN 3 ML VIAL INH PRN (17:52)
[2022-04-28] MEDS ORDERED: TEMAZEPAM 15 MG CAPSULE PO PRN (17:52)
[2022-04-28] MEDS ORDERED: ALBUTEROL HFA 8 GM INHALER INH PRN (17:52)
[2022-04-28] MEDS ORDERED: MAGNESIUM HYDROXIDE SUSP 30 ML UDC PO PRN (17:52)
[2022-04-28] MEDS ORDERED: FUROSEMIDE 20 MG TAB PO PRN (17:52)
[2022-04-28] MEDS ORDERED: ALPRAZolam 0.5 MG TABLET PO PRN (17:52)
[2022-04-28] MEDS ORDERED: VANCOMYCIN CONSULT ACTIVE PRN (17:52)
[2022-04-28] MEDS ORDERED: METOCLOPRAMIDE HCL INJ 5 MG/ML 2 ML VIAL IV PRN (17:52)
[2022-04-28] MEDS ORDERED: HYDROmorphone INJ 0.5 MG/0.5 ML SYR IV PRN (17:52)
[2022-04-28] MEDS ORDERED: bisacodyL 10 MG SUPP PR PRN (17:52)
[2022-04-28] MEDS ORDERED: SODIUM CHLORIDE 0.9% 1000ML 1,000 ML IV SCH (17:52)
--- NOTE | 2022-04-28 18:13 | Hospitalist Consultation ---
Date of Consultation April 28, 2022 Assessment & Plan (1) Primary osteoarthritis of right knee: - POD #0, EBL 5 cc, 2 Hemovacs placed, no complications. - Pain/ABX/IVF/diet/drain management/transfusion needs/activity per primary team - Rescue Narcan ordered for over sedation PRN - VTE prophylaxis per primary service- SCDs in place - CBC and BMP in AM. - Baseline renal function: BUN 19, Cr .070. - Baseline Hgb: 13.9 on 04/09 (2) CAD (coronary artery disease): - Mild disease by catheter in 2013, 40% occlusion proximal LAD. Known LBBB. - Ideally, will hold olmesartan unitl POD #2 given risk of AE/ARB + anesthesia causing hypotension, however can restart tomorrow on POD#1 if BP significantly elevated and renal function at baseline on AM BMP. - Continue aspirin and statin. (3) Hypothyroidism: - Continue Synthroid. (4) Atrial fibrillation with controlled ventricular response: - NSR; continue diltiazem, Xarelto. (5) Insomnia: - Continue temazepam at night as needed. (6) Anemia: - Baseline Hgb 13.9, follow on tomorrow's CBC. (7) Depression: - Continue Zoloft, alprazolam 0.5 mg as needed. (8) Edema: - Has Lasix prescribed as needed, however has not required in "years". - Hold until POD #2 unless severe leg edema/volume overload. (9) IBS (irritable bowel syndrome): - Continue Linzess. Plan - OBS on med/surg per primary team. - SCDs and Continue Xarelto for VTE ppx/afib. - Full Code. Supervising Physician Co-Signing Physician Notes Patient seen and examined, chart reviewed, case discussed with Hina Nix PA-C and I agree with the assessment and plan as above except as otherwise noted . Labs and images reviewed. 72-year-old female with history of IBS, impaired fasting glucose, A. fib on rivaroxaban, CAD, hypertension, hyperlipidemia who presented for scheduled right TKA, now s/p right TKA 04/28/2022. We have been consulted for postoperative medication management. Patient is hemodynamically stable postoperatively. Cap refill intact in lower extremities bilaterally, sensation soft touch intact in hands and feet, although qualitatively slightly diminished in the right lower extremity compared to left. Lungs are clear. Have some postoperative oxygen requirement of 2 L, encourage incentive spirometry suspect atelectasis. Resume Lasix 04/29. If persistent hypoxia 04/29 obtain CXR at that time, patient is on amiodarone but low suspicion for toxicity and was doing well preop. Resume olmesartan 04/29 if creatinine is at baseline. Continue statin. Continue aspirin, would resume Xarelto 24-48 hours postop per orthopedic recommendations, this will cover DVT prophylaxis as well. Otherwise agree with recommendations above. History of Present Illness Reason for Consultation: post op medical management Requesting Physician: Bandar Decker MD Attending Physician: Bandar Decker MD History of Present Illness Stephane Coronel is a 72-year-old female with a past medical history significant for CAD, hypertension, hyperlipidemia, hypothyroidism, A. fib, DARNELL, anemia, insomnia, anxiety, depression, and IBS who was admitted today, 04/28 for right TKA with Dr. Decker after failing conservative outpatient management. Hospitalist group was consulted for post-operative medication management. Today, she is POD#0 and feels well. Denies fever/chills, weakness, chest pain, palpitations, shortness of breath, cough, orthopnea, abdominal pain, nausea, vomiting. Regaining sensation right leg without any numbness tingling. Has been up to urinate several times, and is eating well without nausea or vomiting. No complaints. Allergies Allergy/AdvReac Type Severity Reaction Status Date / Time morphine Allergy Unknown NAUSEA Verified 04/28/22 10:55 VOMITING Penicillins Allergy Unknown HIVES Verified 04/28/22 10:55 Sulfa (Sulfonamide Allergy Unknown TURN RED Verified 04/28/22 10:55 Antibiotics) perfume AdvReac Unknown Cough Verified 04/28/22 10:55 Home Medications Medication Instructions Recorded Confirmed Type acetaminophen 500 mg tablet 1,000 mg PO TID PRN Pain #90 tabs 01/19/19 04/28/22 Rx rivaroxaban 20 mg tablet (Xarelto) 20 mg PO QPM #90 tabs 01/19/19 04/28/22 Rx diclofenac 3 %-hyaluronate 2 1 ea topical DAILY 06/27/20 04/28/22 History %-niacinamide 4 % topical gel furosemide 20 mg tablet 20 mg PO QAM PRN edema #90 tabs 10/28/20 04/28/22 Rx hydrocortisone 2.5 % topical cream 1 applic topical TID PRN skin 02/23/2104/17 Rx irritation #20 grams atorvastatin 40 mg tablet (Lipitor) 40 mg PO QPM #90 tabs 08/28/21 04/28/22 Rx nystatin 100,000 unit/gram topical 1 applic topical DAILY PRN rash 10/02/21 04/28/22 Rx powder #60 grams gabapentin 600 mg tablet 600 mg PO QID #120 tabs 03/02/22 04/28/22 Rx albuterol sulfate 2.5 mg/3 mL 2.5 mg inhalation Q6H PRN Wheezing 03/30/22 04/28/22 History (0.083 %) solution for nebulization alprazolam 0.5 mg tablet (Xanax) 0.5 mg PO BID PRN Anxiety 03/30/22 04/28/22 History amiodarone 100 mg tablet 100 mg PO QPM 03/30/22 04/28/22 History aspirin 81 mg tablet,delayed 81 mg PO QPM 03/30/22 04/28/22 History release diltiazem HCl 180 mg 180 mg PO QPM 03/30/22 04/28/22 History capsule,extended release 24 hr levothyroxine 88 mcg tablet 88 mcg PO QAM 03/30/22 04/28/22 History linaclotide 72 mcg capsule 72 mcg PO QAM 03/30/22 04/28/22 History (Linzess) olmesartan 40 mg tablet (Benicar) 40 mg PO QAM 03/30/22 04/28/22 History omeprazole 20 mg capsule,delayed 20 mg PO QAM 03/30/22 04/28/22 History release vit C 250 mg-vit E 90 mg-zinc 40 1 tab PO BID 03/30/22 04/13/22 History mg-copper 1 [id number] capsule (PreserVision AREDS-2) sertraline 100 mg tablet 100 mg PO QAM #90 tabs 04/01/22 04/28/22 Rx albuterol sulfate 90 mcg/actuation 2 puff inhalation QID PRN 04/13/22 04/13/22 Rx aerosol inhaler (ProAir HFA) shortness of breath or wheezing #8 grams temazepam 15 mg capsule (Restoril) 15 mg PO HS PRN sleep #30 caps 04/13/22 04/28/22 Rx Patient History Medical History Anemia Anxiety and depression Asthmatic bronchitis CAD (coronary artery disease) Follows with Dr. De La Vega Chronic lower back pain Constipation Degenerative joint disease of left hip Gastritis CHRONIC GERD (gastroesophageal reflux disease) Hearing loss History of atrial fibrillation Paroxysmal History of trigger finger R THUMB HTN (hypertension) Hyperlipidemia Hypertension Hypothyroidism Kidney stones Left bundle branch block (LBBB) Lumbar disc disease Macular degeneration Morbid obesity Neurogenic claudication due to lumbar spinal stenosis Nonerosive gastroesophageal reflux disease Pulmonary nodule Scoliosis NECK (LIMITED ROM) & BACK Sleep apnea No device Surgical History Difficult intubation Left BISI (01/25/18): Unable to perform SAB 2/2 severe scoliosis, hit bone. Will proceed with general > Grade view 4 failed, MAC 3 > Glidescope #3, ETT 7.0. History of cardiac radiofrequency ablation X2 History of cardioversion X4 for a fib History of esophagogastroduodenoscopy (EGD) History of open reduction and internal fixation (ORIF) procedure L ANKLE History of tonsillectomy History of total left hip arthroplasty Hx of arthroscopy of right knee Hx of bilateral cataract extraction Hx of cardiac catheterization 2013 Hx of colonoscopy Hx of removal of ovary LEFT Status post lumbar surgery Family History Father Myocardial infarction CHF (congestive heart failure) Brother Coronary heart disease Hyperlipidemia Mother CHF (congestive heart failure) Other Afib Denies family history of Ovarian cancer Prostate cancer Breast cancer Lung cancer Colorectal cancer Social History Smoking Status: Never smoker Second Hand Exposure: Yes (SIGNIFICANT AMOUNT HX OF); Do You Dip or Chew Tobacco: No; Hx Alcohol Use: No Hx Substance Use: No Preferred Language: Zambian Communication Ability: Effective Visual Impairment: Limited Hearing Ability: Hard of Hearing Census Clerk Required: No Beliefs That Will Affect Care: None marital status: Current Living Situation: Alone current occupational status: retired How many Children do You have: 1 Other Information That Helps Us Care for You: No Feels Safe at Home: Yes Safety Concerns: Feels Safe At This Time Childhood Exposure to Second-Hand Smoke: Yes Diet Comment: regular diet caffeine: Yes (1 cup of flora) during the past year weight has: remained stable Dental Care, Regularly: Yes Physical Activity Frequency: Does not Exercise Seatbelt Use: always Sunscreen Use: No (Not out much) Assistive Devices: Cane and Walker Assistive Devices Comment: PARTIAL Review of Systems Review of Systems: Constitutional: No fever/chills, weakness, fatigue, myalgias, anorexia, night sweats Eyes: No diplopia, no worsening or blurred vision ENT: normal hearing, no trouble swallowing Respiratory: No cough, sputum, dyspnea at rest or on exertion Cardiovascular: No chest pain, tightness or palpitations Abdomen: No pain, nausea, vomiting, diarrhea or constipation : Denies dysuria, hematuria, increased urgency/frequency, urinary retention Musculoskeletal: No joint pain, calf pain, swelling Neurologic: No weakness, numbness/tingling, or balance problems Psychiatric: No anxiety or depression Skin: No rash or itch Physical Exam Physical Exam: General: awake, alert, no apparent distress Head: Normocephalic, atraumatic ENT: PERRL, EOMI, no pharyngeal exudate, mucous membranes moist Chest: Clear to auscultation, on room air, no adventitious breath sounds Cardiac: Regular rate and rhythm, no murmur, no JVD, normal peripheral pulses, good capillary refill Abdominal: NABS x 4 quadrants, soft, nontender to palpation, no rebound, guarding or tenderness Extremities: Normal inspection, no peripheral edema or erythema, calfs nontender to palpation Psych: Normal mood and affect Neuro: AAO x 3, strength intact bilaterally and rated 5/5, no motor deficits, speech is clear, no peripheral sensory deficits Skin: no rash or erythema Results & Data Results & Data ([facility]) Vital Signs (Past 12 Hours) Vital Signs Temp Pulse Pulse Resp BP BP Pulse Ox 04/28/22 17:05 74 18 152/83 H 98 04/28/22 16:35 37.0 C 69 15 145/66 H 98 04/28/22 16:25 67 12 159/66 H 99 04/28/22 16:05 69 20 165/53 H 91 04/28/22 16:15 68 14 167/60 H 93 04/28/22 15:55 70 13 183/56 H 95 04/28/22 15:45 36.7 C 70 13 159/56 H 93 04/28/22 11:11 36.7 C 62 18 182/59 H 99 O2 Del Method O2 Flow Rate 04/28/22 17:05 Nasal Cannula 2 04/28/22 16:35 Nasal Cannula 2 04/28/22 16:25 Nasal Cannula 2 04/28/22 16:05 Room Air 04/28/22 16:15 Room Air 04/28/22 15:55 Oxymask 6 04/28/22 15:45 Oxymask 6 04/28/22 11:11 Room Air Diagnostic Findings Knee X-Ray 04/28/22 15:49 XR knee RT 1 or 2V routine CLINICAL HISTORY: Surgical Post Op TECHNIQUE: 2 views of the right knee were obtained. Comparison: None available at the time of this dictation. FINDINGS: Patient is status post total knee arthroplasty with expected postsurgical changes including soft tissue swelling and subcutaneous emphysema. No periarticular lucency or hardware fracture is seen. IMPRESSION: Expected postoperative appearance status post placement of total knee arthroplasty. ACT 112: Negative or not required by law. Electronically signed by: Artem Ryees M.D. 04/28/2022 4:41 PM PG Care Time/CCT Total # of Minutes Spent Total Time Spent with Patient: Total time spent is greater than 50% in coordination of care (as documented) at patient's floor/unit and/or counseling patient: Coding Level of Care Code 36040 Office/OBS Consult Lvl 4 Diagnoses Primary osteoarthritis of right knee M17.11 CAD (coronary artery disease) I25.10 Hypothyroidism E03.9 Atrial fibrillation with controlled ventricular response I48.91 Insomnia G47.00 Anemia D64.9 Depression F32.A Edema R60.9 IBS (irritable bowel syndrome) K58.9
[2022-04-28] MEDS: GABAPENTIN 600 MG TAB PO SCH ×2 (18:42→20:31)
[2022-04-28] MEDS: DOCUSATE SODIUM 100 MG CAP PO SCH (20:30)
[2022-04-28] MEDS: AMIODARONE 200 MG TAB PO SCH (20:30)
[2022-04-28] MEDS: ATORVASTATIN 40 MG TAB PO SCH (20:30)
[2022-04-28] MEDS: dilTIAZem HCL 180 MG CAPCR PO SCH (20:30)
[2022-04-28] MEDS: SENNA 8.6 MG TAB PO SCH (20:30)
[2022-04-29] MEDS ORDERED: VANCOMYCIN HCL 1,250 MG in SODIUM CHLORIDE 0.9% 250 ML IV SCH (02:00)
[2022-04-29 07:23] LABS: Hematocrit (blood only) 34.3 % (34.1-44.9); Hemoglobin 11.8 g/dl (12.0-16.0); Mean Corpuscular Hemoglobin 33.1 pg (25.0-34.0); Mean Corpuscular Hgb Conc 34.4 g/dL (32.0-36.0); Mean Corpuscular Volume 96.3 fL (80.0-100.0); Mean Platelet Volume 9.6 fL (9.4-12.3); Platelet Count 163 K/uL (130-400); RDW Coefficient of Variation 12.7 % (11.5-14.5); RDW Standard Deviation 45.2 fL (36.4-46.3); Red Blood Count 3.56 M/uL (3.93-5.22); White Blood Count 10.94 K/ul (4.8-10.8)
[2022-04-29] MEDS: GABAPENTIN 600 MG TAB PO SCH ×4 (07:25→20:31)
[2022-04-29] MEDS: SERTRALINE HCL 100 MG TABLET PO SCH (07:25)
[2022-04-29] MEDS: MULTIVITAMIN TAB PO SCH (07:25)
[2022-04-29] MEDS: DOCUSATE SODIUM 100 MG CAP PO SCH ×2 (07:25→20:31)
[2022-04-29] MEDS: PANTOprazole 40 MG TAB PO SCH (07:25)
[2022-04-29] MEDS: linaCLOtide 72 MCG CAPSULE PO SCH (07:26)
[2022-04-29] MEDS: LEVOTHYROXINE SODIUM 88 MCG TABLET PO SCH (07:26)
[2022-04-29 07:55] LABS: Calcium 8.9 mg/dl (8.5-10.1); Creatinine Clr Calc Pharmacy 77.3 ml/min; Est GFR (African American) 104.1 ml/min; Est GFR (Non-African American) 89.8 ml/min; Potassium 4.4 mmol/L (3.5-5.1)
--- NOTE | 2022-04-29 08:11 | Orthopedic Progress Note ---
Date of Service April 29, 2022 Assessment & Plan (1) Primary osteoarthritis of right knee: Plan: Postop day 1 status post right total knee arthroplasty. PT/OT protocols. Weightbearing as tolerated. DVT prophylaxis-aspirin p.o. twice daily, Christoph, JOSE andujar. Pain management as written. DC planning patient is planning for home health services upon discharge. Admission and Anticipated Discharge Date Admission Date: April 28, 2022 Subjective Postop day 1 Patient sitting up in bed awake and alert. States she is having little bit of d iscomfort over on the lateral aspect of the knee where the drain is. No other complaints at this time. Denies shortness of breath, chest pain, lightheadedness. Patient resides at home alone and will not have a ride until tomorrow and is hoping to be discharged tomorrow. She does state that she will be having someone come in on a regular basis off and on throughout the day to help out with her needs. Physical Exam Physical Exam: Dressings are clean, dry, and intact. Calves are soft nontender. Neurovascular intact. Toes are mobile. She has good dorsiflexion and plantarflexion of the right foot. She had 100 mL of drainage from her Hemovac from the previous shift. Results & Data ([facility]) Vital Signs (Past 12 Hours) Vital Signs Temp Pulse Pulse Resp BP BP Pulse Ox 04/29/22 07:19 36.8 C 81 18 162/75 H 95 04/29/22 03:00 36.5 C 65 16 141/79 H 92 04/28/22 23:00 37.1 C 73 16 129/73 92 O2 Del Method 04/29/22 07:19 Room Air 04/29/22 03:00 Room Air 04/28/22 23:00 Room Air Laboratory Results Laboratory Results WBC 10.94 K/ul (4.8-10.8) H 04/29/22 06:59 RBC 3.56 M/uL (3.93-5.22) L 04/29/22 06:59 Hgb 11.8 g/dl (12.0-16.0) L 04/29/22 06:59 Hct 34.3 % (34.1-44.9) 04/29/22 06:59 MCV 96.3 fL (80.0-100.0) 04/29/22 06:59 MCH 33.1 pg (25.0-34.0) 04/29/22 06:59 MCHC 34.4 g/dL (32.0-36.0) 04/29/22 06:59 RDW Std Deviation 45.2 fL (36.4-46.3) 04/29/22 06:59 RDW Coeff of Rad 12.7 % (11.5-14.5) 04/29/22 06:59 Plt Count 163 K/uL (130-400) 04/29/22 06:59 MPV 9.6 fL (9.4-12.3) 04/29/22 06:59 Sodium 135 mmol/L (136-145) L 04/29/22 06:59 Potassium 4.4 mmol/L (3.5-5.1) 04/29/22 06:59 Chloride 104 mmol/L (98-107) 04/29/22 06:59 Carbon Dioxide 24 mmol/L (21-32) 04/29/22 06:59 Anion Gap 7 (3-11) 04/29/22 06:59 BUN 16 mg/dl (6-23) 04/29/22 06:59 Creatinine 0.64 mg/dl (0.6-1.2) 04/29/22 06:59 Est Cr Clr Drug Dosing 77.3 ml/min 04/29/22 06:59 Est GFR ( Amer) 104.1 ml/min 04/29/22 06:59 Est GFR (Non-Af Amer) 89.8 ml/min 04/29/22 06:59 BUN/Creatinine Ratio 25.0 (10-20) H 04/29/22 06:59 Glucose 112 mg/dl (70-99(Fasting)) H 04/29/22 06:59 Calcium 8.9 mg/dl (8.5-10.1) 04/29/22 06:59 SARS-CoV-2, RNA, NAAT NEGATIVE (NEGATIVE) 04/28/22 Unknown Impressions Knee X-Ray 04/28/22 15:49 XR knee RT 1 or 2V routine CLINICAL HISTORY: Surgical Post Op TECHNIQUE: 2 views of the right knee were obtained. Comparison: None available at the time of this dictation. FINDINGS: Patient is status post total knee arthroplasty with expected postsurgical changes including soft tissue swelling and subcutaneous emphysema. No periarticular lucency or hardware fracture is seen. IMPRESSION: Expected postoperative appearance status post placement of total knee arthroplasty. ACT 112: Negative or not required by law. Electronically signed by: Artem Reyes M.D. 04/28/2022 4:41 PM
[2022-04-29] MEDS: HYDROCODONE/ACETAMOPHEN 5/325MG TAB PO PRN ×3 (08:54→20:39)
[2022-04-29] MEDS ORDERED: OLMESARTAN MEDOXOMIL 40 MG TAB PO SCH (09:00)
--- NOTE | 2022-04-29 10:30 | Hospitalist Progress Note ---
Date of Service April 29, 2022 Assessment & Plan (1) Primary osteoarthritis of right knee: Plan: - POD #1 s/p R TKA by Dr. Decker - Pain/ABX/IVF/diet/drain management/transfusion needs/activity per primary team - VTE prophylaxis per primary service (covered by resumption of Xarelto) - Case management to assist in dc planning - Encouraged use of incentive spirometer q1-2h wa for atelectasis/pna prevention (2) CAD (coronary artery disease): Plan: - Mild disease by catheter in 2013, 40% occlusion proximal LAD. Known LBBB. - Ideally, typically would hold ARB pod#1 d/t interaction with spinal anesthesia causing hypotension and/or NIHARIKA * BP up slightly at 160 systolic this AM and renal function WNL * Resume Losartan - Continue aspirin and statin. (3) Hypothyroidism: Plan: - Continue Synthroid. (4) Atrial fibrillation with controlled ventricular response: Plan: - NSR; continue diltiazem, Xarelto. (5) Insomnia: Plan: - Continue temazepam at night as needed. (6) Anemia: Plan: - Baseline Hgb 13.9 with a mild drop (2g) to 11.8 which is multifactorial (dilutional + blood loss) (7) Depression: Plan: - Continue Zoloft, alprazolam 0.5 mg as needed. (8) Edema: Plan: - Has Lasix prescribed as needed, however has not required in "years". - Hold until POD #2 unless severe leg edema/volume overload. (9) IBS (irritable bowel syndrome): Plan: - Continue Linzess. Plan Will resume pt's Losartan today given BP and renal fxn wnl. Otherwise, I have no further recommendations as she is medically and hemodynamically stable for dc when cleared by primary orthopedic service. Thank you for allowing us to participate in the care of your patient, will sign off but please feel free to reconsult or notify if any acute needs should arise while patient remains in house. Plan d/w Dr. Hamilton. Admission and Anticipated Discharge Date Admission Date: April 28, 2022 Subjective Patient was seen on daily rounds this morning. Underwent R TKA on 04/[address] Decker. She is doing well this morning, knee pain adequately controlled (exacerbated by working with therapy). She denies cp, dyspnea, palpitations, f/c, sob, n/v/d. Review of Systems Review of Systems: All systems reviewed and are unremarkable except as noted in HPI and below. Denies fever, chills, fatigue, headache, nasal congestion, sore throat, cough, chest pain, shortness of breath, palpitations, orthopnea, PND, abdominal pain, n/v/d, constipation, dysuria, hematuria, frequency, back pain, easy bruising or bleeding, skin lesions or rashes. Physical Exam Physical Exam: GENERAL: 72 yo Well-developed, well-nourished WF. NAD. LUNGS: Clear to auscultation bilaterally. No W/R/R. CARDIOVASCULAR: Regular rate and rhythm. ABDOMEN: Soft, non-tender and non-distended. BS normoactive x 4 quad. EXTREMITIES: No edema. No calf tenderness. Peripheral pulses +2/4. Neg colin's sign on R. Drain visualized on lateral aspect of R knee. NEUROLOGIC: A&O x3. Nonfocal PSYCHIATRIC: Cooperative. Appropriate mood and affect. SKIN: Warm, dry, intact. No rashes or lesions. Results & Data Results & Data ([facility]) Vital Signs (Past 12 Hours) Vital Signs Temp Pulse Pulse Resp BP BP Pulse Ox 04/29/22 07:19 36.8 C 81 18 162/75 H 95 04/29/22 03:00 36.5 C 65 16 141/79 H 92 04/28/22 23:00 37.1 C 73 16 129/73 92 O2 Del Method 04/29/22 07:19 Room Air 04/29/22 03:00 Room Air 04/28/22 23:00 Room Air Laboratory Results 04/29/22 06:59 04/29/22 06:59 PG Care Time/CCT Total # of Minutes Spent Total Time Spent with Patient: Total time spent is greater than 50% in coordination of care (as documented) at patient's floor/unit and/or counseling patient: Coding Level of Care Code 33688 Subseq Obs Care Lvl 2 Diagnoses Primary osteoarthritis of right knee M17.11 CAD (coronary artery disease) I25.10 Hypothyroidism E03.9 Atrial fibrillation with controlled ventricular response I48.91 Insomnia G47.00 Anemia D64.9 Depression F32.A Edema R60.9 IBS (irritable bowel syndrome) K58.9
[2022-04-29] MEDS: OLMESARTAN MEDOXOMIL 40 MG TAB PO SCH (11:00)
[2022-04-29] MEDS: dilTIAZem HCL 180 MG CAPCR PO SCH (20:30)
[2022-04-29] MEDS: SENNA 8.6 MG TAB PO SCH (20:31)
[2022-04-29] MEDS: ATORVASTATIN 40 MG TAB PO SCH (20:31)
[2022-04-29] MEDS: AMIODARONE 200 MG TAB PO SCH (20:31)
[2022-04-29] MEDS ORDERED: ASPIRIN 81 MG ECTAB PO SCH (21:00)
[2022-04-29] MEDS ORDERED: RIVAROXABAN 20 MG TAB PO SCH (21:00)
[2022-04-30] MEDS: HYDROCODONE/ACETAMOPHEN 5/325MG TAB PO PRN (05:41)
[2022-04-30] MEDS: LEVOTHYROXINE SODIUM 88 MCG TABLET PO SCH (06:03)
--- NOTE | 2022-04-30 07:41 | Orthopedic Progress Note ---
Date of Service April 30, 2022 Assessment & Plan (1) Primary osteoarthritis of right knee: Plan: Postop day 2 status post right total knee arthroplasty. PT/OT protocols. Weightbearing as tolerated. DVT prophylaxis- home aspirin and Xarelto, SCDs, JOSE andujar. Pain management as written. DC planning patient is planning for home health services upon discharge. Plan on discharge home today. Admission and Anticipated Discharge Date Admission Date: April 29, 2022 Subjective Patient is resting in bed comfortably. Pain controlled. Did well with therapy yesterday. She is hoping to go home today. No other complaints. Review of Systems Review of Systems: All systems reviewed & are unremarkable except as noted in Subjective Physical Exam Physical Exam: Right knee dressing is clean, dry, intact. Hemovac dressing site with mild bloody drainage. No calf tenderness. Toes are mobile with good dorsiflexion. Distally neurovascular status and sensation intact. Constitutional: well developed and well nourished; no acute distress Results & Data ([facility]) Vital Signs (Past 12 Hours) Vital Signs Temp Pulse Resp BP Pulse Ox O2 Del Method 04/29/22 22:30 36.8 C 84 18 147/72 H 96 Room Air
[2022-04-30] MEDS: MULTIVITAMIN TAB PO SCH (07:55)
[2022-04-30] MEDS: OLMESARTAN MEDOXOMIL 40 MG TAB PO SCH (07:55)
[2022-04-30] MEDS: PANTOprazole 40 MG TAB PO SCH (07:55)
[2022-04-30] MEDS: SERTRALINE HCL 100 MG TABLET PO SCH (07:55)
[2022-04-30] MEDS: linaCLOtide 72 MCG CAPSULE PO SCH (07:56)
[2022-04-30] MEDS: GABAPENTIN 600 MG TAB PO SCH ×2 (07:56→12:18)
[2022-04-30] MEDS: DOCUSATE SODIUM 100 MG CAP PO SCH (07:56)
[2022-04-30] MEDS ORDERED: OLMESARTAN MEDOXOMIL 40 MG TAB PO SCH (09:00)
[2022-04-30] MEDS ORDERED: FUROSEMIDE 20 MG TAB PO PRN (17:52)
--- NOTE | 2022-05-02 07:28 | Discharge Summary ---
Date of Service May 02, 2022 Admission HPI Per Admitting Provider 72yo female with PMHx significant for Afib, HTN, DARNELL, GERD, CAD, LBBB, hypothyroidism who presents with ongoing right knee pain. Patient has failed conservative measures. She has pain interfering with daily activities. She would like to proceed with surgical intervention. Patient denies headaches, sweats, fevers, chills, double vision, blurred vision, cough, sore throat, dysphagia, chest pain, sob, wheezing, n/v/d/c, numbness, tingling, fatigue, urinary symptoms, mood disorders. ROS positive for right knee pain and stiffness. Admission Exam Per Admitting Provider Constitutional: well developed and well nourished; no acute distress Eyes: PERRL, conjunctivae normal, anicteric sclerae ENMT: external ear and nose normal, oropharynx normal Neck: trachea midline, no thyromegaly Respiratory: normal respiratory effort, lungs clear to auscultation Cardiovascular: RRR, no murmur, no edema Musculoskeletal: Right knee: Valgus alignment. Tenderness lateral joint line. Stable to valgus and varus stress. ROM 0-125 degrees. Crepitation with ROM. Skin: no rashes, warm and dry Neurologic: patellar DTR's 2+ bilat, sensation intact Psychiatric: A+Ox3, euthymic affect Principal Diagnosis right knee osteoarthritis Discharge Exam Right knee dressing is clean, dry, intact. Hemovac dressing site with mild bloody drainage. No calf tenderness. Toes are mobile with good dorsiflexion. Distally neurovascular status and sensation intact. Constitutional well developed and well nourished; no acute distress Discharge Data Allergies Allergy/AdvReac Type Severity Reaction Status Date / Time morphine Allergy Unknown NAUSEA Verified 04/28/22 10:55 VOMITING Penicillins Allergy Unknown HIVES Verified 04/28/22 10:55 Sulfa (Sulfonamide Allergy Unknown TURN RED Verified 04/28/22 10:55 Antibiotics) perfume AdvReac Unknown Cough Verified 04/28/22 10:55 Consultations 04/26/22 14:09 Consult Hospitalist Routine Procedures Performed Operation Date: 04/28/22 12:00 Actual Procedures p Right Total Knee Arthroplasty(Right) - Bandar Decker MD Ordered Studies 04/28/22 05:00 US - OR guided needle placemen Routine Hospital Course (1) Primary osteoarthritis of right knee: Postop day 2 status post right total knee arthroplasty. PT/OT protocols. Weightbearing as tolerated. DVT prophylaxis- home aspirin and Xarelto, JOSE [place] hose. Pain management as written. DC planning patient is planning for home health services upon discharge. Plan on discharge home today. Postop day 1 status post right total knee arthroplasty. PT/OT protocols. Weightbearing as tolerated. DVT prophylaxis-aspirin p.o. twice daily, SCDs, JOSE hose. Pain management as written. DC planning patient is planning for home health services upon discharge. Lab Results 04/28/22 04/29/22 04/29/22 Range/Units Unknown 06:59 06:59 WBC 10.94 H (4.8-10.8) K/ul RBC 3.56 L (3.93-5.22) M/uL Hgb 11.8 L (12.0-16.0) g/dl Hct 34.3 (34.1-44.9) % MCV 96.3 (80.0-100.0) fL MCH 33.1 (25.0-34.0) pg MCHC 34.4 (32.0-36.0) g/dL RDW Std Deviation 45.2 (36.4-46.3) fL RDW Coeff of Rad 12.7 (11.5-14.5) % Plt Count 163 (130-400) K/uL MPV 9.6 (9.4-12.3) fL Sodium 135 L (136-145) mmol/L Potassium 4.4 (3.5-5.1) mmol/L Chloride 104 (98-107) mmol/L Carbon Dioxide 24 (21-32) mmol/L Anion Gap 7 (3-11) BUN 16 (6-23) mg/dl Creatinine 0.64 (0.6-1.2) mg/dl Est Cr Clr Drug Dosing 77.3 ml/min Est GFR ( Amer) 104.1 ml/min Est GFR (Non-Af Amer) 89.8 ml/min BUN/Creatinine Ratio 25.0 H (10-20) Glucose 112 H (70-99(Fasting)) mg/dl Calcium 8.9 (8.5-10.1) mg/dl SARS-CoV-2, RNA, NAAT NEGATIVE (NEGATIVE) Total Time Total Time Spent Total Time Spent (In Minutes): 20 Discharge Plan Discharge Items Patient Disposition: Home - Home Health Services Reason For Visit: Osteoarthritis, Right Knee Discharge Diagnosis: Right knee osteoarthritis Activity: Per Instructions section Non-emergency contact: Surgeon Call non-emergency contact if: you have any medication questions, your pain is not controlled, your pain is concerning for you, you have a fever, your temperature is above 101, your wound has increased redness and your wound has increased drainage Follow-up/Referrals: Jericho Sierra DO [Primary Care Provider] - 05/06/22 10:00 am (If you are unable to keep your follow up appointment, please call the office to reschedule. ) Diet: Regular Addtl Attending Provider Instructions: ACTIVITY RECOMMENDATIONS: SELF CARE INSTRUCTIONS AFTER TOTAL KNEE REPLACEMENT A. You may need to continue a physical therapy program after discharge from the hospital. There are several options available to you. Your doctor will assist you in selecting the best one for you. 1. An out-patient facility 2 to 3 times a week for therapy or home therapy. 2. Continue working on all exercises taught to you in the hospital. Your goals should be to increase bending of your knee to 90 degrees and beyond and to fully straighten your knee. B. You may progress at your own pace from walking with a walker or crutches to a cane; then to no assistive devices. C. Make walking a part of your daily routine. Be up as much as comfortable with rest periods throughout the day. Rest with leg elevation is very important. Use the ice wrap frequently for the first 3-4 weeks. D. There are no restrictions on activities. You may ride in a car, shop, participate in manager emergency department and all social activities. E. Wear the long elastic stockings (JOSE hose) 20 hours a day for 2 weeks after surgery. They can be removed several times a day for laundering and for a bath. F. You may shower, no tub baths until cleared by your doctor. SPECIAL CARE INSTRUCTIONS: VERY IMPORTANT TO READ AND REVIEW A. There are a few signs you need to watch for after you are home. Call [facility] if you notice any of the followin. Increased severe knee pain. Some pain is expected especially when you exercise. 2. Increased swelling in your leg or knee; pain or swelling of the calf muscle in either lower leg. 3. Any fluid drainage from the incision. 4. Shortness of breath or chest pain. B. Please call [facility] at if you have any concerns or questions about your operation or recovery. The doctor or his nurse will return your call promptly. C. You must take antibiotics before dental work, bladder, bowel or other surgery. Your doctor will provide you with a permanent care to carry describing this precaution. IMPORTANT: * REMEMBER TO TAKE ASPIRIN, 81 MG, TWICE DAILY FOR 4 WEEKS UNLESS OTHERWISE DIRECTED. THIS IS YOUR BLOOD THINNER. * HIGH RISK PATIENTS MAY BE PRESCRIBED A STRONGER BLOOD THINNER. THIS WILL BE PROVIDED AT DISCHARGE. * CALL IF INCREASED PAIN, REDNESS, DRAINAGE OR FEVER GREATER THAT 101. * WEAR JOSE HOSE 20 HOURS PER DAY FOR 2 WEEKS. This is a large suction dressing covering your incision. This will help pull any excess drainage from the wound and allow your incision to heal properly. You may shower with this if you can keep the unit outside of the shower. If any bleeding or leakage is noted please call your doctor's office. This will remain on your incision for 7 days and then should be removed. This can be done yourself or by the home nursing staff if applicable. The entire unit is disposable once removed. Once removed, keep incision clean and dry. If redness or drainage is noted, please call your surgeon. IF INCISION IS LEAKING THROUGH DRESSING, CALL THE OFFICE . FOLLOW UP VISIT: If appointment is not already scheduled: Please call [facility] to make a follow-up appointment for 2 weeks after your surgery at . Stand-Alone Forms: [facility], Smoking Cessation Medications and DC Order Prescriptions: New hydrocodone-acetaminophen 5-325 mg Tablet 1 - 2 tab PO .Q4h-6h PRN (Reason: pain) Qty: 30 0RF Rx Instructions: Ongoing therapy, Dr. Decker supervising Continued furosemide 20 mg tablet 20 mg PO QAM PRN (Reason: edema) Qty: 90 0RF atorvastatin [Lipitor] 40 mg tablet 40 mg PO QPM Qty: 90 3RF nystatin 100,000 unit/gram powder 1 applic topical DAILY PRN (Reason: rash) Qty: 60 0RF gabapentin 600 mg tablet 600 mg PO QID Qty: 120 2RF sertraline 100 mg tablet 100 mg PO QAM Qty: 90 0RF temazepam [Restoril] 15 mg capsule 15 mg PO HS PRN (Reason: sleep) Qty: 30 0RF Xarelto 20 mg tablet 20 mg PO QPM Qty: 90 3RF hydrocortisone 2.5 % cream 1 applic topical TID PRN (Reason: skin irritation) Qty: 20 0RF albuterol sulfate [ProAir HFA] 90 mcg/actuation HFA aerosol inhaler 2 puff INH QID PRN (Reason: shortness of breath or wheezing) Qty: 8 3RF hicjblyesj-irfzakqhobf-mutned 3-2-4 % gel 1 ea topical DAILY albuterol sulfate 2.5 mg /3 mL (0.083 %) solution for nebulization 2.5 mg inhalation Q6H PRN (Reason: Wheezing) diltiazem HCl 180 mg capsule,extended release 24hr 180 mg PO QPM aspirin 81 mg tablet,delayed release (DR/EC) 81 mg PO QPM levothyroxine 88 mcg tablet 88 mcg PO QAM alprazolam [Xanax] 0.5 mg tablet 0.5 mg PO BID PRN (Reason: Anxiety) amiodarone 100 mg tablet 100 mg PO QPM Linzess 72 mcg capsule 72 mcg PO QAM PreserVision AREDS-2 250-90-40-1 mg Capsule 1 tab PO BID omeprazole 20 mg capsule,delayed release(DR/EC) 20 mg PO QAM olmesartan [Benicar] 40 mg tablet 40 mg PO QAM Discontinued acetaminophen 500 mg tablet 1,000 mg PO TID PRN (Reason: Pain) Qty: 90 3RF Discharge Orders: Discharge Order (Routine); Ordered 04/30/22 Ordered By: Walter Newell/Other Patient Handouts: Falls Prevent Adjust Living Space Admission Data Admit Date/Time: 04/29/22 11:17 Attending Provider: Bandar Decker Admit Provider: Bandar Decker Primary Care Provider: Jericho Sierra Other Providers: Jose R Staples ; Reece Hamilton. ; [facility] Other Interventions: Discharge Summary Assessment (RN) Last Done: 04/30/22 10:17
== END 2022-04-30 13:13 | disposition home health service (06) | DRG 470 ==
LOC: ASU 10:01 → 3E 10:01
DX: K21.9 Gastro-esophageal reflux disease without esophagitis; I48.91 Unspecified atrial fibrillation; G47.33 Obstructive sleep apnea (adult) (pediatric); D64.9 Anemia, unspecified; Z88.5 Allergy status to narcotic agent; Z96.642 Presence of left artificial hip joint; I44.7 Left bundle-branch block, unspecified; I10 Essential (primary) hypertension; E03.9 Hypothyroidism, unspecified; G47.00 Insomnia, unspecified; Z88.6 Allergy status to analgesic agent; M81.0 Age-related osteoporosis without current pathological fracture; F32.A Depression, unspecified; M17.11 Unilateral primary osteoarthritis, right knee; Z88.2 Allergy status to sulfonamides; I25.10 Atherosclerotic heart disease of native coronary artery without angina pectoris; Z88.0 Allergy status to penicillin; K58.9 Irritable bowel syndrome, unspecified; Z68.30 Body mass index [BMI] 30.0-30.9, adult; E66.9 Obesity, unspecified